=== PATIENT | female | born 1985 ===

== ENCOUNTER 2022-08-26 08:27 | Day surgery (SDC) | payer OTHER ==
[~2022-08-26 08:27] MED LIST: SYNTHROID125 MCG PO; VALTREX1000 MG PO
[2022-08-26] MEDS ORDERED: NAPR500T14 PO (15:11)
== END 2022-08-26 17:45 | disposition home or self-care (01) ==
LOC: CIR.AMB 08:27
PROVIDERS: ATTEND Obstetrics & Gynecology
DX: D25.0 Submucous leiomyoma of uterus (principal); Z20.822 Contact with and (suspected) exposure to COVID-19; E03.9 Hypothyroidism, unspecified

== ENCOUNTER 2024-01-02 23:15 | Emergency (ER) | payer OTHER ==
[~2024-01-02] VITALS: Ht 154.9 cm; Wt 72.6 kg
[~2024-01-02 23:15] MED LIST changes: +NAPR500T14 PO
[2024-01-02] MEDS ORDERED: PRENATAL + DHA1 EAC1 PO (23:30)
[2024-01-03 03:36] LABS: HEMATOCRIT 37.3 % (36.0-45.00); HEMOGLOBIN 12.2 g/dL (12.0-15.00); MEAN CELL VOLUME 86.2 fL (80.00-100.00); MEAN CORPUSCULAR HEMOGLOBIN 28.3 pg (27.00-32.0); MEAN CORPUSCULAR HGB CONC 32.8 g/dl (32.0-36.0); PLATELET COUNT 214 K/uL (150-450); RED BLOOD COUNT 4.32 M/uL (4.00-6.00); RED CELL DISTRIBUTION WIDTH 15.2 % (11.5-14.5)
[2024-01-03 04:02] LABS: CALCIUM 8.2 mg/dL (8.5-10.1); GFR 96.83; POTASSIUM 3.34 mEq/L (3.5-5.1)
[2024-01-03 04:12] LABS: CREATININE SERUM 0.68 mg/dL (0.55-1.02)
== END 2024-01-03 05:35 | disposition home or self-care (01) ==
LOC: ER 23:15
DX: O20.0 Threatened abortion (principal); Z3A.01 Less than 8 weeks gestation of pregnancy